=== PATIENT | female | born 1995 | race Caucasian/White ===

== ENCOUNTER 2020-03-13 17:47 | Observation (INO) | payer BC ==
[2020-03-13] MEDS ORDERED: Sodium Chloride 0.9% 10 ML Syringe FLUSH PRN (18:26)
[2020-03-13] MEDS ORDERED: Lactated Ringers 1,000 ML IV SCH ×2 (18:30)
== END 2020-03-13 21:20 | disposition home or self-care (01) ==
LOC: JD.OBCHECK 17:47 → JD.OB 17:47 → JD.OBCHECK 18:27 → JD.OB 18:27
PROVIDERS: ADMIT Obstetrics & Gynecology; ATTEND Obstetrics & Gynecology
DX: O47.03 False labor before 37 completed weeks of gestation, third trimester (principal); Z3A.36 36 weeks gestation of pregnancy
CPT/HCPCS: 59025; 81001; 87086; 96360; G0378; J7120

== ENCOUNTER 2020-03-28 06:41 | Inpatient (IN) | payer BC ==
[~2020-03-28 06:41] MED LIST: Lidocaine 1.5% with EPINEPHrine 1:200,000 5 ML Amp ONE
[2020-03-28] MEDS ORDERED: Ondansetron 4 MG/2 ML SDV IVPUSH PRN (07:46)
[2020-03-28] MEDS ORDERED: Nalbuphine 10 MG/ML Syringe IVPUSH PRN (07:46)
[2020-03-28] MEDS ORDERED: Sodium Chloride 0.9% 10 ML Syringe FLUSH PRN (07:46)
[2020-03-28] MEDS ORDERED: Oxytocin/Lactated Ringers 10 UNIT/1,000 ML BAG IV SCH ×2 (08:00)
[2020-03-28] MEDS: Lactated Ringers 1,000 ML IV SCH ×3 (08:18→14:29)
--- NOTE | 2020-03-28 09:13 | PCM.LDHP ---
<Lolita Boswell - Last Filed: 03/28/20 09:39> L&D History of Present Illness - General Date of Service: 03/28/20 Admit Problem/Dx: Patient Status Order with Admit Dx/Problem 03/28/20 07:47 Patient Status [ADT] Routine Admission Diagnosis/Problem Admission Diagnosis/Problem Source of Information: Patient History Limitations: Reports: No Limitations - History of Present Illness Introduction:: Vannessa Foley is a 24-year-old at 39 weeks and 0 days gestation who presents to the labor and delivery unit for elective induction. She is allergic to latex. OBGYN History: LMP on 06/25/2019. Normal menarche at age 15. Cycles are approximately every 28-31 days. She had one spontaneous in 2016. She had one on 04/28/2018 at 40 weeks gestation in [place], [place]. Length of labor was 20 hours. She had an epidural performed. The baby was a female weighing 7 lbs 8 oz. She reports no complications with that delivery. Course: Vannessa was seen initially on 09/19/2020. She was seen on a regular basis throughout her . She overall had no problems or complaints, other than possible decreased movement in January 2020. A biophysical profile was performed on 02/27/2020 which showed a score of 8/8 with normal amniotic fluid, breathing, tone, activity, appropriate growth, and cephalic presentation.. Her vitals remained stable throughout the . She gained 26 pounds over the course of her , from 144 pounds to 170 pounds. Fundal height growth was appropriate throughout . Inital laboratory studies on 09/19/2019 showed hemoglobin of 12.9 g/dl, hematocrit of 37.8%, and platelet count of 283 10*3/uL. Blood type is O+ and antibody screen was negative. Second trimester labs showed a hemoglobin of 11.2 g/dl, hematocrit of 35.1%, and platelet count of 240 10*3/uL. Most recent labs show a hemoglobin of 10.6 g/dl, hematocrit of 34.5%, and platelet count of 222 10*3/uL. She is rubella immune. RPR nonreactive. Hepatitis B surface antigen and HIV testing were both negative. Chlamydia and gonorrhea testing was negative. Group B strep testing was negative. One-hour GTT was normal. Improves with: Reports: None Worsens with: Reports: None Associated Symptoms: Reports: N - Related Data Allergies/Adverse Reactions: Allergies Allergy/AdvReac Type Severity Reaction Status Date / Time Latex, Natural Rubber Allergy Rash Verified 03/28/20 09:10 Home Medications: Home Meds Vits #93/Iron Fum/FA [ Formula Tablet] 1 tab PO DAILY 03/13/20 [History] Docusate Sodium [Colace] 100 mg PO DAILY 03/28/20 [History] Ferrous Sulfate [Iron] 325 mg PO DAILY 03/28/20 [History] Past Medical History HEENT History: Reports: Impaired Vision Cardiovascular History: Reports: None Respiratory History: Reports: None Gastrointestinal History: Reports: None 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: , 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 Neurological History: Reports: None Hematologic History: Reports: Other (See Below) Other Hematologic History: Low iron only during - Past Surgical History HEENT Surgical History: Reports: None Social & Family History - Family History Family Medical History: Noncontributory - Tobacco Use Smoking Status *Q: Former Smoker Years of Tobacco use: 1 Used Tobacco, but Quit: Yes Month/Year Tobacco Last Used: 03/2015 - Alcohol Use Alcohol Use History: No - Recreational Drug Use Recreational Drug Use: No H&P Review of Systems - Review of Systems: Review Of Systems: See Below General: Reports: No Symptoms HEENT: Reports: No Symptoms Pulmonary: Reports: No Symptoms Cardiovascular: Reports: No Symptoms Gastrointestinal: Reports: No Symptoms Genitourinary: Reports: No Symptoms Musculoskeletal: Reports: No Symptoms Skin: Reports: No Symptoms Psychiatric: Reports: No Symptoms Neurological: Reports: No Symptoms Hematologic/Lymphatic: Reports: No Symptoms Immunologic: Reports: No Symptoms L&D Exam - Exam Exam: See Below - Vital Signs Vital Signs: Last Vital Signs Temp 97.8 F 03/28/20 07:46 Pulse 82 03/28/20 07:46 Resp 16 03/28/20 07:46 BP 110/72 03/28/20 07:46 Pulse Ox 97 03/28/20 07:46 Weight: 172 lb - OB Specific Contraction Intensity: Mild Movement: Active - Exam General: Alert, Oriented, Cooperative HEENT: Conjunctiva Clear, EACs Clear, EOMI, Hearing Intact, Mucosa Moist & [place], Normal Nasal Septum, Posterior Pharynx Clear, Pupils Equal, Pupils Reactive, TMs Clear, PERRLA Neck: Supple, Trachea Midline, +2 Carotid Pulse wo Bruit, Full Range of Motion, Other (Thyroid nonenlarged with no nodules.) Lungs: Clear to Auscultation, Normal Respiratory Effort Cardiovascular: Regular Rate, Regular Rhythm, Normal S1, Normal S2 GI/Abdominal Exam: Normal Bowel Sounds, Soft, Non-Tender, No Organomegaly, No Distention, No Mass Rectal Exam: Deferred Back Exam: Other (No CVA tenderness) Extremities: Normal Inspection, Non-Tender, No Pedal Edema, Normal Capillary Refill Skin: Warm, Dry, Intact Neurological: Cranial Nerves Intact, Reflexes Equal Bilateral, Normal Speech, Normal Tone DTR: 2+: Bicep (L), Bicep (R), Patella (L), Patella (R), Achilles (L), Achilles (R) Psychiatric: Alert, Normal Affect, Normal Mood - Patient Data Lab Results Last 24 hrs: Laboratory Results - last 24 hr 03/28/20 Range/Units 08:10 WBC 7.31 (3.98-10.04) K/mm3 RBC 3.93 L (3.98-5.22) M/mm3 Hgb 10.5 L (11.2-15.7) gm/dl Hct 34.5 (34.1-44.9) % MCV 87.8 (79.4-94.8) fl MCH 26.7 (25.6-32.2) pg MCHC 30.4 L (32.2-35.5) g/dl RDW Std Deviation 50.8 H (36.4-46.3) fL Plt Count 208 (182-369) K/mm3 MPV 10.4 (9.4-12.3) fl Neut % (Auto) 68.7 (34.0-71.1) % Lymph % (Auto) 21.2 (19.3-51.7) % [place] % (Auto) 8.8 (4.7-12.5) % Eos % (Auto) 1.1 (0.7-5.8) Baso % (Auto) 0.1 (0.1-1.2) % Neut # (Auto) 5.02 (1.56-6.13) K/mm3 Lymph # (Auto) 1.55 (1.18-3.74) K/mm3 [place] # (Auto) 0.64 H (0.24-0.36) K/mm3 Eos # (Auto) 0.08 (0.04-0.36) K/mm3 Baso # (Auto) 0.01 (0.01-0.08) K/mm3 Result Diagrams: 03/28/20 08:10 Orders Last 24hrs: Active Orders 24 hr Category Date Time Status Patient Status [ADT] Routine ADT 03/28/20 07:47 Active Activity as Tolerated [RC] PFP Care 03/28/20 07:46 Active Communication Order [RC] ASDIRECTED Care 03/28/20 07:46 Active Heart Tones [RC] ASDIRECTED Care 03/28/20 07:47 Active Notify Provider [RC] PFP Care 03/28/20 07:46 Active Notify Provider [RC] PRN Care 03/28/20 07:46 Active Peripheral IV Care [RC] . DIRECTED Care 03/28/20 07:47 Active Pump Management, Intrathecal [RC] ASDIRECTED Care 03/28/20 07:53 Active Vital Signs [RC] PER UNIT ROUTINE Care 03/28/20 07:46 Active Regular Diet [DIET] Diet 03/28/20 Breakfast Active BLOOD BANK HOLD SPECIMEN [BBK] Stat Lab 03/28/20 08:10 Received RAPID PLASMA REAGIN,RPR [CHEM] Routine Lab 03/28/20 08:10 Received Lactated Ringers [Ringers, Lactated] 1,000 ml Med 03/28/20 08:00 Active IV ASDIRECTED Nalbuphine [Nubain] Med 03/28/20 07:46 Active 10 mg IVPUSH Q2H PRN Ondansetron [Zofran] Med 03/28/20 07:46 Active 4 mg IVPUSH Q4H PRN Oxytocin/Lactated Ringers [Pitocin in LR 10 Units/1,000 Med 03/28/20 08:00 Active ML] 10 unit in 1,000 ml IV .CONTINUOUS Oxytocin/Lactated Ringers [Pitocin in LR 10 Units/1,000 Med 03/28/20 08:00 Active ML] 10 unit in 1,000 ml IV TITRATE Sodium Chloride 0.9% [Saline Flush] Med 03/28/20 07:46 Active 10 ml FLUSH ASDIRECTED PRN Electronic Heart Tones Ext w TOCO [WOMSER] Oth 03/28/20 07:46 Ordered Routine Electronic Heart Tones Internal [WOMSER] Per Unit Ot 03/28/20 07:46 Ordered Routine Peripheral IV Insertion Adult [OM.PC] Routine Oth 03/28/20 07:46 Ordered Resuscitation Status Routine Resus Stat 03/28/20 07:46 Ordered Medication Orders Oxytocin/Lactated Ringer's (Pitocin In Lr 10 Units/1,000 Ml) 10 unit in 1,000 mls @ 12 mls/hr IV TITRATE CHRISTIE; Protocol Last Admin: 03/28/20 08:18 Dose: 2 munits/min, 12 mls/hr Documented by: GASTON Oxytocin/Lactated Ringer's (Pitocin In Lr 10 Units/1,000 Ml) 10 unit in 1,000 mls @ 100 mls/hr IV .CONTINUOUS CHRISTIE Lactated Ringer's (Ringers, Lactated) 1,000 mls @ 100 mls/hr IV ASDIRECTED CHRISTIE Last Admin: 03/28/20 08:18 Dose: 100 mls/hr Documented by: GASTON Nalbuphine HCl (Nubain) 10 mg IVPUSH Q2H PRN PRN Reason: Pain Ondansetron HCl (Zofran) 4 mg IVPUSH Q4H PRN PRN Reason: Nausea/Vomiting Sodium Chloride (Saline Flush) 10 ml FLUSH ASDIRECTED PRN PRN Reason: Keep Vein Open <Daniel Bliss - Last Filed: 03/28/20 10:33> L&D History of Present Illness - General Admit Problem/Dx: Patient Status Order with Admit Dx/Problem 03/28/20 07:47 Patient Status [ADT] Routine Admission Diagnosis/Problem Admission Diagnosis/Problem Source of Information: Patient History Limitations: Reports: No Limitations H&P Review of Systems - Review of Systems: Review Of Systems: See Below L&D Exam - Exam Exam: See Below - Vital Signs Vital Signs: Last Vital Signs Temp 97.8 F 03/28/20 07:46 Pulse 82 03/28/20 07:46 Resp 16 03/28/20 07:46 BP 110/72 03/28/20 07:46 Pulse Ox 97 03/28/20 07:46 - OB Specific Presentation: Vertex - Aly Score Aly Score Cervix Position: Posterior Aly Score Consistency: Soft Aly Score Effacement: 51-70% Aly Score Dilation: 1-2 cm Aly Score 's Station: -3 Aly Score Total: 5 - Patient Data Lab Results Last 24 hrs: Laboratory Results - last 24 hr 03/28/20 Range/Units 08:10 WBC 7.31 (3.98-10.04) K/mm3 RBC 3.93 L (3.98-5.22) M/mm3 Hgb 10.5 L (11.2-15.7) gm/dl Hct 34.5 (34.1-44.9) % MCV 87.8 (79.4-94.8) fl MCH 26.7 (25.6-32.2) pg MCHC 30.4 L (32.2-35.5) g/dl RDW Std Deviation 50.8 H (36.4-46.3) fL Plt Count 208 (182-369) K/mm3 MPV 10.4 (9.4-12.3) fl Neut % (Auto) 68.7 (34.0-71.1) % Lymph % (Auto) 21.2 (19.3-51.7) % [place] % (Auto) 8.8 (4.7-12.5) % Eos % (Auto) 1.1 (0.7-5.8) Baso % (Auto) 0.1 (0.1-1.2) % Neut # (Auto) 5.02 (1.56-6.13) K/mm3 Lymph # (Auto) 1.55 (1.18-3.74) K/mm3 [place] # (Auto) 0.64 H (0.24-0.36) K/mm3 Eos # (Auto) 0.08 (0.04-0.36) K/mm3 Baso # (Auto) 0.01 (0.01-0.08) K/mm3 Result Diagrams: 03/28/20 08:10 - Problem List (1) 39 weeks gestation of SNOMED Code(s): 28915969 ICD Code: Z3A.39 - 39 WEEKS GESTATION OF Status: Acute Current Visit: Yes Problem List Initiated/Reviewed/Updated: No Orders Last 24hrs: Active Orders 24 hr Category Date Time Status Patient Status [ADT] Routine ADT 03/28/20 07:47 Active Activity as Tolerated [RC] PFP Care 03/28/20 07:46 Active Communication Order [RC] ASDIRECTED Care 03/28/20 07:46 Active Notify Provider [RC] PFP Care 03/28/20 07:46 Active Notify Provider [RC] PRN Care 03/28/20 07:46 Active Peripheral IV Care [RC] . DIRECTED Care 03/28/20 07:47 Active Pump Management, Intrathecal [RC] ASDIRECTED Care 03/28/20 07:53 Active Vital Signs [RC] PER UNIT ROUTINE Care 03/28/20 07:46 Active Regular Diet [DIET] Diet 03/28/20 Breakfast Active BLOOD BANK HOLD SPECIMEN [BBK] Stat Lab 03/28/20 08:10 Received CORONAVIRUS COVID-19 RAPID PCR [MOLEC] Routine Lab 03/28/20 10:00 Received RAPID PLASMA REAGIN,RPR [CHEM] Routine Lab 03/28/20 08:10 Received Lactated Ringers [Ringers, Lactated] 1,000 ml Med 03/28/20 08:00 Active IV ASDIRECTED Nalbuphine [Nubain] Med 03/28/20 07:46 Active 10 mg IVPUSH Q2H PRN Ondansetron [Zofran] Med 03/28/20 07:46 Active 4 mg IVPUSH Q4H PRN Oxytocin/Lactated Ringers [Pitocin in LR 10 Units/1,000 Med 03/28/20 08:00 Active ML] 10 unit in 1,000 ml IV .CONTINUOUS Oxytocin/Lactated Ringers [Pitocin in LR 10 Units/1,000 Med 03/28/20 08:00 Active ML] 10 unit in 1,000 ml IV TITRATE Sodium Chloride 0.9% [Saline Flush] Med 03/28/20 07:46 Active 10 ml FLUSH ASDIRECTED PRN Electronic Heart Tones Ext w TOCO [WOMSER] Oth 03/28/20 07:46 Ordered Routine Electronic Heart Tones Internal [WOMSER] Per Unit Oth 03/28/20 07:46 Ordered Routine Peripheral IV Insertion Adult [OM.PC] Routine Oth 03/28/20 07:46 Ordered Resuscitation Status Routine Resus Stat 03/28/20 07:46 Ordered Medication Orders Oxytocin/Lactated Ringer's (Pitocin In Lr 10 Units/1,000 Ml) 10 unit in 1,000 mls @ 12 mls/hr IV TITRATE CHRISTIE; Protocol Last Admin: 03/28/20 08:18 Dose: 2 munits/min, 12 mls/hr Documented by: GASTON Oxytocin/Lactated Ringer's (Pitocin In Lr 10 Units/1,000 Ml) 10 unit in 1,000 mls @ 100 mls/hr IV .CONTINUOUS CHRISTIE Lactated Ringer's (Ringers, Lactated) 1,000 mls @ 100 mls/hr IV ASDIRECTED CHRISTIE Last Admin: 03/28/20 08:18 Dose: 100 mls/hr Documented by: GASTON Nalbuphine HCl (Nubain) 10 mg IVPUSH Q2H PRN PRN Reason: Pain Ondansetron HCl (Zofran) 4 mg IVPUSH Q4H PRN PRN Reason: Nausea/Vomiting Sodium Chloride (Saline Flush) 10 ml FLUSH ASDIRECTED PRN PRN Reason: Keep Vein Open Assessment/Plan Comment:: Plan delivery
--- NOTE | 2020-03-28 11:08 | PCM.SN.2 ---
- Free Text/Narrative Note: Amniotomy at 1103 Clear fluid Cat I FHR before and after. Cervix 4 cm, 70%, soft, mid-position, vertex -1 station. Will be getting epidural soon.
[2020-03-28] MEDS ORDERED: diphenhydrAMINE 50 MG/ML SDV IVPUSH PRN (13:21)
[2020-03-28] MEDS ORDERED: Bupivacaine/fentaNYL/NS 100 ML Bag EPIDUR PRN (13:21)
[2020-03-28] MEDS ORDERED: ePHEDrine 50 MG/ML SDV IVPUSH PRN (13:21)
[2020-03-28] MEDS ORDERED: fentaNYL 100 MCG/2 ML SDV EPIDUR PRN (13:21)
--- NOTE | 2020-03-28 13:21 | PCM.PREANE ---
Preanesthetic Assessment - Anesthesia/Transfusion/Family Hx Anesthesia History: No Prior Anesthesia Transfusion History: No Prior Transfusion(s) Type of Transfusion Reactions: Reports: Unknown - Review of Systems General: No Symptoms Pulmonary: No Symptoms Cardiovascular: No Symptoms Gastrointestinal: No Symptoms Neurological: No Symptoms Other: Reports: None - Physical Assessment Vital Signs: Last Vital Signs Temp 97.8 F 03/28/20 07:46 Pulse 82 03/28/20 07:46 Resp 16 03/28/20 07:46 BP 110/72 03/28/20 07:46 Pulse Ox 97 03/28/20 07:46 Height: 1.55 m Weight: 78.018 kg ASA Class: 2 Mental Status: Alert & Oriented x3 Airway Class: Mallampati = 2 Dentition: Reports: Normal Dentition Thyro-Mental Finger Breadths: 3 Mouth Opening Finger Breadths: 3 ROM/Head Extension: Full Lungs: Clear to Auscultation, Normal Respiratory Effort Cardiovascular: Regular Rate, Regular Rhythm - Lab Values: Laboratory Last Values WBC 7.31 K/mm3 (3.98-10.04) 03/28/20 08:10 RBC 3.93 M/mm3 (3.98-5.22) L 03/28/20 08:10 Hgb 10.5 gm/dl (11.2-15.7) L 03/28/20 08:10 Hct 34.5 % (34.1-44.9) 03/28/20 08:10 MCV 87.8 fl (79.4-94.8) 03/28/20 08:10 MCH 26.7 pg (25.6-32.2) 03/28/20 08:10 MCHC 30.4 g/dl (32.2-35.5) L 03/28/20 08:10 RDW Std Deviation 50.8 fL (36.4-46.3) H 03/28/20 08:10 Plt Count 208 K/mm3 (182-369) 03/28/20 08:10 MPV 10.4 fl (9.4-12.3) 03/28/20 08:10 Neut % (Auto) 68.7 % (34.0-71.1) 03/28/20 08:10 Lymph % (Auto) 21.2 % (19.3-51.7) 03/28/20 08:10 [place] % (Auto) 8.8 % (4.7-12.5) 03/28/20 08:10 Eos % (Auto) 1.1 (0.7-5.8) 03/28/20 08:10 Baso % (Auto) 0.1 % (0.1-1.2) 03/28/20 08:10 Neut # (Auto) 5.02 K/mm3 (1.56-6.13) 03/28/20 08:10 Lymph # (Auto) 1.55 K/mm3 (1.18-3.74) 03/28/20 08:10 [place] # (Auto) 0.64 K/mm3 (0.24-0.36) H 03/28/20 08:10 Eos # (Auto) 0.08 K/mm3 (0.04-0.36) 03/28/20 08:10 Baso # (Auto) 0.01 K/mm3 (0.01-0.08) 03/28/20 08:10 SARS-CoV-2 RNA (RT-PCR) Negative (NEGATIVE) 03/28/20 10:00 - Allergies Allergies/Adverse Reactions: Allergies Allergy/AdvReac Type Severity Reaction Status Date / Time Latex, Natural Rubber Allergy Rash Verified 03/28/20 09:10 - Acknowledgements Anesthesia Type Planned: Epidural Pt an Appropriate Candidate for the Planned Anesthesia: Yes Alternatives and Risks of Anesthesia Discussed w Pt/Guardian: Yes Pt/Guardian Understands and Agrees with Anesthesia Plan: Yes PreAnesthesia Questionnaire HEENT History: Reports: Impaired Vision Cardiovascular History: Reports: None Respiratory History: Reports: None Gastrointestinal History: Reports: None 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: , 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 Neurological History: Reports: None Hematologic History: Reports: Other (See Below) Other Hematologic History: Low iron only during - Past Surgical History HEENT Surgical History: Reports: None - SUBSTANCE USE Smoking Status *Q: Former Smoker Tobacco Use Within Last Twelve Months: No Recreational Drug Use History: No - HOME MEDS Home Medications: Home Meds Vits #93/Iron Fum/FA [ Formula Tablet] 1 tab PO DAILY 03/13/20 [History] Docusate Sodium [Colace] 100 mg PO DAILY 03/28/20 [History] Ferrous Sulfate [Iron] 325 mg PO DAILY 03/28/20 [History] - CURRENT (IN HOUSE) MEDS Current Meds: Current Medications Oxytocin/Lactated Ringer's (Pitocin In Lr 10 Units/1,000 Ml) 10 unit in 1,000 mls @ 12 mls/hr IV TITRATE CHRISTIE; Protocol Last Titration: 03/28/20 10:40 Dose: 10 munits/min, 60 mls/hr Documented by: Oxytocin/Lactated Ringer's (Pitocin In Lr 10 Units/1,000 Ml) 10 unit in 1,000 mls @ 100 mls/hr IV .CONTINUOUS CHRISTIE Lactated Ringer's (Ringers, Lactated) 1,000 mls @ 100 mls/hr IV ASDIRECTED CHRISTIE Last Admin: 03/28/20 12:21 Dose: 100 mls/hr Documented by: Nalbuphine HCl (Nubain) 10 mg IVPUSH Q2H PRN PRN Reason: Pain Ondansetron HCl (Zofran) 4 mg IVPUSH Q4H PRN PRN Reason: Nausea/Vomiting Sodium Chloride (Saline Flush) 10 ml FLUSH ASDIRECTED PRN PRN Reason: Keep Vein Open
--- NOTE | 2020-03-28 16:26 | PCM.DEL ---
L & D Note - General Info Date of Service: 03/28/20 Mother's Due Date: 04/03/20 - Delivery Note Labor: Spontaneous, Augmented by ARM, Augmented by Oxytocin Cervical Ripening Method: Oxytocin Delivery Outcome: Livebirth (Female liveborn at 160Thursday03/28/2020 JOSE nuchal cord x1 under epidural anesthesia over no episiotomy) Delivery Method: Spontaneous Vaginal Delivery-Single Infant Delivery Mode: Spontaneous Presentation: Vertex Nuchal Cord: Present Prep: Povidone-Iodine (Betadine Anesthesia Type: None, Epidural Amniotic Fluid Description: Clear Episiotomy Type: None Laceration: None Placenta: Intact, Spontaneous Cord: 3 Vessels Estimated Blood Loss: 250 Resuscitation Needed: No : Suctioned, Bulb Syringe, Stimulated, Warmed, [place] Used, Warmer Used Provider: Daniel Bliss Score 1 min: 9 Score 5 min: 9 - General Info Date of Service: 03/28/20 Functional Status: Reports: Pain Controlled - Review of Systems General: Reports: No Symptoms HEENT: Reports: No Symptoms Pulmonary: Reports: No Symptoms Cardiovascular: Reports: No Symptoms Gastrointestinal: Reports: No Symptoms Genitourinary: Reports: No Symptoms Musculoskeletal: Reports: No Symptoms Skin: Reports: No Symptoms Neurological: Reports: No Symptoms Psychiatric: Reports: No Symptoms - Patient Data Vitals - Most Recent: Last Vital Signs Temp 97.8 F 03/28/20 07:46 Pulse 82 03/28/20 07:46 Resp 16 03/28/20 07:46 BP 110/72 03/28/20 07:46 Pulse Ox 97 03/28/20 07:46 Weight - Most Recent: 172 lb Lab Results Last 24 Hours: Laboratory Results - last 24 hr 03/28/20 03/28/20 Range/Units 08:10 10:00 WBC 7.31 (3.98-10.04) K/mm3 RBC 3.93 L (3.98-5.22) M/mm3 Hgb 10.5 L (11.2-15.7) gm/dl Hct 34.5 (34.1-44.9) % MCV 87.8 (79.4-94.8) fl MCH 26.7 (25.6-32.2) pg MCHC 30.4 L (32.2-35.5) g/dl RDW Std Deviation 50.8 H (36.4-46.3) fL Plt Count 208 (182-369) K/mm3 MPV 10.4 (9.4-12.3) fl Neut % (Auto) 68.7 (34.0-71.1) % Lymph % (Auto) 21.2 (19.3-51.7) % [place] % (Auto) 8.8 (4.7-12.5) % Eos % (Auto) 1.1 (0.7-5.8) Baso % (Auto) 0.1 (0.1-1.2) % Neut # (Auto) 5.02 (1.56-6.13) K/mm3 Lymph # (Auto) 1.55 (1.18-3.74) K/mm3 [place] # (Auto) 0.64 H (0.24-0.36) K/mm3 Eos # (Auto) 0.08 (0.04-0.36) K/mm3 Baso # (Auto) 0.01 (0.01-0.08) K/mm3 SARS-CoV-2 RNA (RT-PCR) Negative (NEGATIVE) Med Orders - Current: Current Medications Diphenhydramine HCl (Benadryl) 25 mg IVPUSH Q6H PRN PRN Reason: pruritis Ephedrine Sulfate (Ephedrine Sulfate) 5 mg IVPUSH ASDIRECTED PRN PRN Reason: Hypotension Fentanyl (Sublimaze) 100 mcg EPIDUR Q3H PRN PRN Reason: Pain Last Admin: 03/28/20 13:46 Dose: 100 mcg Documented by: Fentanyl/Bupivacaine HCl (Fentanyl/Bupivacaine/Ns 2 Mcg-0.125% 100 Ml) 100 ml EPIDUR ASDIRECTED PRN PRN Reason: Pain Last Admin: 03/28/20 13:46 Dose: 100 ml Documented by: Oxytocin/Lactated Ringer's (Pitocin In Lr 10 Units/1,000 Ml) 10 unit in 1,000 mls @ 12 mls/hr IV TITRATE CHRISTIE; Protocol Last Titration: 03/28/20 14:32 Dose: 12 munits/min, 72 mls/hr Documented by: Oxytocin/Lactated Ringer's (Pitocin In Lr 10 Units/1,000 Ml) 10 unit in 1,000 mls @ 100 mls/hr IV .CONTINUOUS CHRISTIE Lactated Ringer's (Ringers, Lactated) 1,000 mls @ 100 mls/hr IV ASDIRECTED [facility] Last Admin: 03/28/20 14:29 Dose: 100 mls/hr Documented by: Nalbuphine HCl (Nubain) 10 mg IVPUSH Q2H PRN PRN Reason: Pain Ondansetron HCl (Zofran) 4 mg IVPUSH Q4H PRN PRN Reason: Nausea/Vomiting Sodium Chloride (Saline Flush) 10 ml FLUSH ASDIRECTED PRN PRN Reason: Keep Vein Open - Exam General: Alert, Oriented HEENT: Pupils Equal, Mucous Membr. Moist/[place] Neck: Supple Lungs: Clear to Auscultation, Normal Respiratory Effort Cardiovascular: Regular Rate, Regular Rhythm GI/Abdominal Exam: Normal Bowel Sounds, Soft, Non-Tender (Female) Exam: Normal External Exam Extremities: Normal Inspection, Non-Tender, No Pedal Edema, Normal Capillary Refill Skin: Warm, Dry, Intact Psy/Mental Status: Alert, Normal Affect, Normal Mood - Problem List & Annotations (1) 39 weeks gestation of SNOMED Code(s): 49257323 Code(s): Z3A.39 - 39 WEEKS GESTATION OF Status: Acute Current Visit: Yes (2) Encounter for full-term uncomplicated delivery SNOMED Code(s): 606281804 Code(s): O80 - ENCOUNTER FOR FULL-TERM UNCOMPLICATED DELIVERY Status: Acute Current Visit: Yes - Problem List Review Problem List Initiated/Reviewed/Updated: No - My Orders Last 24 Hours: My Active Orders 03/28/20 Breakfast Regular Diet [DIET] 03/28/20 07:46 Activity as Tolerated [RC] PFP Communication Order [RC] ASDIRECTED Notify Provider [RC] PFP Notify Provider [RC] PRN Vital Signs [RC] PER UNIT ROUTINE Nalbuphine [Nubain] 10 mg IVPUSH Q2H PRN Ondansetron [Zofran] 4 mg IVPUSH Q4H PRN Sodium Chloride 0.9% [Saline Flush] 10 ml FLUSH ASDIRECTED PRN Electronic Heart Tones Ext w TOCO [WOMSER] Routine Electronic Heart Tones Internal [WOMSER] Per Unit Routine Peripheral IV Insertion Adult [OM.PC] Routine Resuscitation Status Routine 03/28/20 07:47 Patient Status [ADT] Routine Peripheral IV Care [RC] . DIRECTED 03/28/20 07:53 Pump Management, Intrathecal [RC] ASDIRECTED 03/28/20 08:00 Lactated Ringers [Ringers, Lactated] 1,000 ml IV ASDIRECTED Oxytocin/Lactated Ringers [Pitocin in LR 10 Units/1,000 ML] 10 unit in 1,000 ml IV .CONTINUOUS Oxytocin/Lactated Ringers [Pitocin in LR 10 Units/1,000 ML] 10 unit in 1,000 ml IV TITRATE 03/28/20 08:10 BLOOD BANK HOLD SPECIMEN [BBK] Stat RAPID PLASMA REAGIN,RPR [CHEM] Routine - Plan Plan:: Plan delivery
[2020-03-28] MEDS ORDERED: Docusate Sodium 100 MG Cap PO PRN (17:30)
[2020-03-28] MEDS ORDERED: Witch Hazel Medicated Pads 40/Jar TOP PRN (17:30)
[2020-03-28] MEDS ORDERED: Benzocaine/Menthol 20%-0.5% Spray 56 GM Canister TOP PRN (19:27)
[2020-03-28] MEDS: Ibuprofen 600 MG Tab PO PRN (20:06)
[2020-03-28] MEDS: Acetaminophen 325 MG Tab PO PRN (22:31)
[2020-03-29] MEDS: Ibuprofen 600 MG Tab PO PRN ×2 (03:23→16:51)
[2020-03-29] MEDS: Acetaminophen 325 MG Tab PO PRN (06:08)
--- NOTE | 2020-03-29 08:04 | PCM48HPAN ---
Post Anesthesia Note - EVALUATION WITHIN 48HRS OF ANESTHETIC Vital Signs in Normal Range: Yes Patient Participated in Evaluation: Yes Respiratory Function Stable: Yes Airway Patent: Yes Cardiovascular Function Stable: Yes Hydration Status Stable: Yes Pain Control Satisfactory: Yes Nausea and Vomiting Control Satisfactory: Yes Mental Status Recovered: Yes Vital Signs: Last Vital Signs Temp 97.5 F 03/29/20 03:11 Pulse 77 03/29/20 03:11 Resp 14 03/29/20 03:11 BP 116/69 03/29/20 03:11 Pulse Ox 100 03/29/20 03:11
--- NOTE | 2020-03-29 09:22 | PCM.DCSUM1 ---
Discharge Summary - Hospital Course Free Text/Narrative:: [place] LIVE L/D Delivery Note Patient Name: FAITH AYALA Date of : 89 Patient Status: Inpatient Attending Provider: Daniel Bliss Date: 03/28/20 16:21 Initialization Date: 03/28/20 16:21 L & D Note - General Info Date of Service: 03/28/20 Mother's Due Date: 04/03/20 - Delivery Note Labor: Spontaneous, Augmented by ARM, Augmented by Oxytocin Cervical Ripening Method: Oxytocin Delivery Outcome: Livebirth (Female liveborn at 1605 Thursday03/28/2020 JOSE nuchal cord x1 under epidural anesthesia over no episiotomy) Infant Delivery Method: Spontaneous Vaginal Delivery-Single Infant Delivery Mode: Spontaneous Presentation: Vertex Nuchal Cord: Present Prep: Povidone-Iodine (Betadine Anesthesia Type: None, Epidural Amniotic Fluid Description: Clear Episiotomy Type: None Laceration: None Placenta: Intact, Spontaneous Cord: 3 Vessels Estimated Blood Loss: 250 Resuscitation Needed: No : Suctioned, Bulb Syringe, Stimulated, Warmed, Monroe Used, Warmer Used Provider: Daniel Bliss Score 1 min: 9 Score 5 min: 9 - General Info Date of Service: 03/28/20 Functional Status: Reports: Pain Controlled - Review of Systems General: Reports: No Symptoms HEENT: Reports: No Symptoms Pulmonary: Reports: No Symptoms Cardiovascular: Reports: No Symptoms Gastrointestinal: Reports: No Symptoms Genitourinary: Reports: No Symptoms Musculoskeletal: Reports: No Symptoms Skin: Reports: No Symptoms Neurological: Reports: No Symptoms Psychiatric: Reports: No Symptoms - Patient Data Vitals - Most Recent: Last Vital Signs Temp 97.8 F 03/28/20 07:46 Pulse 82 03/28/20 07:46 Resp 16 03/28/20 07:46 BP 110/72 03/28/20 07:46 Pulse Ox 97 03/28/20 07:46 Weight - Most Recent: 172 lb Lab Results Last 24 Hours: Laboratory Results - last 24 hr 03/28/20 03/28/20 Range/Units 08:10 10:00 WBC 7.31 (3.98-10.04) K/mm3 RBC 3.93 L (3.98-5.22) M/mm3 Hgb 10.5 L (11.2-15.7) gm/dl Hct 34.5 (34.1-44.9) % MCV 87.8 (79.4-94.8) fl MCH 26.7 (25.6-32.2) pg MCHC 30.4 L (32.2-35.5) g/dl RDW Std Deviation 50.8 H (36.4-46.3) fL Plt Count 208 (182-369) K/mm3 MPV 10.4 (9.4-12.3) fl Neut % (Auto) 68.7 (34.0-71.1) % Lymph % (Auto) 21.2 (19.3-51.7) % Dawson % (Auto) 8.8 (4.7-12.5) % Eos % (Auto) 1.1 (0.7-5.8) Baso % (Auto) 0.1 (0.1-1.2) % Neut # (Auto) 5.02 (1.56-6.13) K/mm3 Lymph # (Auto) 1.55 (1.18-3.74) K/mm3 Dawson # (Auto) 0.64 H (0.24-0.36) K/mm3 Eos # (Auto) 0.08 (0.04-0.36) K/mm3 Baso # (Auto) 0.01 (0.01-0.08) K/mm3 SARS-CoV-2 RNA (RT-PCR) Negative (NEGATIVE) Med Orders - Current: Current Medications Diphenhydramine HCl (Benadryl) 25 mg IVPUSH Q6H PRN PRN Reason: pruritis Ephedrine Sulfate (Ephedrine Sulfate) 5 mg IVPUSH ASDIRECTED PRN PRN Reason: Hypotension Fentanyl (Sublimaze) 100 mcg EPIDUR Q3H PRN PRN Reason: Pain Last Admin: 03/28/20 13:46 Dose: 100 mcg Documented by: Fentanyl/Bupivacaine HCl (Fentanyl/Bupivacaine/Ns 2 Mcg-0.125% 100 Ml) 100 ml EPIDUR ASDIRECTED PRN PRN Reason: Pain Last Admin: 03/28/20 13:46 Dose: 100 ml Documented by: Oxytocin/Lactated Ringer's (Pitocin In Lr 10 Units/1,000 Ml) 10 unit in 1,000 mls @ 12 mls/hr IV TITRATE CHRISTIE; Protocol Last Titration: 03/28/20 14:32 Dose: 12 munits/min, 72 mls/hr Documented by: Oxytocin/Lactated Ringer's (Pitocin In Lr 10 Units/1,000 Ml) 10 unit in 1,000 mls @ 100 mls/hr IV .CONTINUOUS CHRISTIE Lactated Ringer's (Ringers, Lactated) 1,000 mls @ 100 mls/hr IV ASDIRECTED CHRISTIE Last Admin: 03/28/20 14:29 Dose: 100 mls/hr Documented by: Nalbuphine HCl (Nubain) 10 mg IVPUSH Q2H PRN PRN Reason: Pain Ondansetron HCl (Zofran) 4 mg IVPUSH Q4H PRN PRN Reason: Nausea/Vomiting Sodium Chloride (Saline Flush) 10 ml FLUSH ASDIRECTED PRN PRN Reason: Keep Vein Open - Exam General: Alert, Oriented HEENT: Pupils Equal, Mucous Membr. Moist/Carmine Neck: Supple Lungs: Clear to Auscultation, Normal Respiratory Effort Cardiovascular: Regular Rate, Regular Rhythm GI/Abdominal Exam: Normal Bowel Sounds, Soft, Non-Tender (Female) Exam: Normal External Exam Extremities: Normal Inspection, Non-Tender, No Pedal Edema, Normal Capillary Refill Skin: Warm, Dry, Intact Psy/Mental Status: Alert, Normal Affect, Normal Mood - Problem List & Annotations (1) 39 weeks gestation of SNOMED Code(s): 78085618 Code(s): Z3A.39 - 39 WEEKS GESTATION OF Status: Acute Current Visit: Yes (2) Encounter for full-term uncomplicated delivery SNOMED Code(s): 710512008 Code(s): O80 - ENCOUNTER FOR FULL-TERM UNCOMPLICATED DELIVERY Status: Acute Current Visit: Yes - Problem List Review Problem List Initiated/Reviewed/Updated: No - My Orders Last 24 Hours: My Active Orders 03/28/20 Breakfast Regular Diet [DIET] 03/28/20 07:46 Activity as Tolerated [RC] PFP Communication Order [RC] ASDIRECTED Notify Provider [RC] PFP Notify Provider [RC] PRN Vital Signs [RC] PER UNIT ROUTINE Nalbuphine [Nubain] 10 mg IVPUSH Q2H PRN Ondansetron [Zofran] 4 mg IVPUSH Q4H PRN Sodium Chloride 0.9% [Saline Flush] 10 ml FLUSH ASDIRECTED PRN Electronic Heart Tones Ext w TOCO [WOMSER] Routine Electronic Heart Tones Internal [WOMSER] Per Unit Routine Peripheral IV Insertion Adult [OM.PC] Routine Resuscitation Status Routine 03/28/20 07:47 Patient Status [ADT] Routine Peripheral IV Care [RC] . DIRECTED 03/28/20 07:53 Pump Management, Intrathecal [RC] ASDIRECTED 03/28/20 08:00 Lactated Ringers [Ringers, Lactated] 1,000 ml IV ASDIRECTED Oxytocin/Lactated Ringers [Pitocin in LR 10 Units/1,000 ML] 10 unit in 1,000 ml IV .CONTINUOUS Oxytocin/Lactated Ringers [Pitocin in LR 10 Units/1,000 ML] 10 unit in 1,000 ml IV TITRATE 03/28/20 08:10 BLOOD BANK HOLD SPECIMEN [BBK] Stat RAPID PLASMA REAGIN,RPR [CHEM] Routine - Plan Plan:: Plan delivery HPI Initial Comments: [place] [facility]IVE L/D Delivery Note Patient Name: FAITH AYALA Date of : [birth year] Patient Status: Inpatient Attending Provider: Daniel Bliss Date: 03/28/20 16:21 Initialization Date: 03/28/20 16:21 L & D Note - General Info Date of Service: 03/28/20 Mother's Due Date: 04/03/20 - Delivery Note Labor: Spontaneous, Augmented by ARM, Augmented by Oxytocin Cervical Ripening Method: Oxytocin Delivery Outcome: Livebirth (Female liveborn at 1605 Thursday03/28/2020 JOSE nuchal cord x1 under epidural anesthesia over no episiotomy) Infant Delivery Method: Spontaneous Vaginal Delivery-Single Delivery Mode: Spontaneous Presentation: Vertex Nuchal Cord: Present Prep: Povidone-Iodine (Betadine Anesthesia Type: None, Epidural Amniotic Fluid Description: Clear Episiotomy Type: None Laceration: None Placenta: Intact, Spontaneous Cord: 3 Vessels Estimated Blood Loss: 250 Resuscitation Needed: No Yulee: Suctioned, Bulb Syringe, Stimulated, Warmed, Monroe Used, Warmer Used Provider: Daniel Bliss Score 1 min: 9 Score 5 min: 9 - General Info Date of Service: 03/28/20 Functional Status: Reports: Pain Controlled - Review of Systems General: Reports: No Symptoms HEENT: Reports: No Symptoms Pulmonary: Reports: No Symptoms Cardiovascular: Reports: No Symptoms Gastrointestinal: Reports: No Symptoms Genitourinary: Reports: No Symptoms Musculoskeletal: Reports: No Symptoms Skin: Reports: No Symptoms Neurological: Reports: No Symptoms Psychiatric: Reports: No Symptoms - Patient Data Vitals - Most Recent: Last Vital Signs Temp 97.8 F 03/28/20 07:46 Pulse 82 03/28/20 07:46 Resp 16 03/28/20 07:46 BP 110/72 03/28/20 07:46 Pulse Ox 97 03/28/20 07:46 Weight - Most Recent: 172 lb Lab Results Last 24 Hours: Laboratory Results - last 24 hr 03/28/20 03/28/20 Range/Units 08:10 10:00 WBC 7.31 (3.98-10.04) K/mm3 RBC 3.93 L (3.98-5.22) M/mm3 Hgb 10.5 L (11.2-15.7) gm/dl Hct 34.5 (34.1-44.9) % MCV 87.8 (79.4-94.8) fl MCH 26.7 (25.6-32.2) pg MCHC 30.4 L (32.2-35.5) g/dl RDW Std Deviation 50.8 H (36.4-46.3) fL Plt Count 208 (182-369) K/mm3 MPV 10.4 (9.4-12.3) fl Neut % (Auto) 68.7 (34.0-71.1) % Lymph % (Auto) 21.2 (19.3-51.7) % Dawson % (Auto) 8.8 (4.7-12.5) % Eos % (Auto) 1.1 (0.7-5.8) Baso % (Auto) 0.1 (0.1-1.2) % Neut # (Auto) 5.02 (1.56-6.13) K/mm3 Lymph # (Auto) 1.55 (1.18-3.74) K/mm3 Dawson # (Auto) 0.64 H (0.24-0.36) K/mm3 Eos # (Auto) 0.08 (0.04-0.36) K/mm3 Baso # (Auto) 0.01 (0.01-0.08) K/mm3 SARS-CoV-2 RNA (RT-PCR) Negative (NEGATIVE) Med Orders - Current: Current Medications Diphenhydramine HCl (Benadryl) 25 mg IVPUSH Q6H PRN PRN Reason: pruritis Ephedrine Sulfate (Ephedrine Sulfate) 5 mg IVPUSH ASDIRECTED PRN PRN Reason: Hypotension Fentanyl (Sublimaze) 100 mcg EPIDUR Q3H PRN PRN Reason: Pain Last Admin: 03/28/20 13:46 Dose: 100 mcg Documented by: Fentanyl/Bupivacaine HCl (Fentanyl/Bupivacaine/Ns 2 Mcg-0.125% 100 Ml) 100 ml EPIDUR ASDIRECTED PRN PRN Reason: Pain Last Admin: 03/28/20 13:46 Dose: 100 ml Documented by: Oxytocin/Lactated Ringer's (Pitocin In Lr 10 Units/1,000 Ml) 10 unit in 1,000 mls @ 12 mls/hr IV TITRATE CHRISTIE; Protocol Last Titration: 03/28/20 14:32 Dose: 12 munits/min, 72 mls/hr Documented by: Oxytocin/Lactated Ringer's (Pitocin In Lr 10 Units/1,000 Ml) 10 unit in 1,000 mls @ 100 mls/hr IV .CONTINUOUS CHRISTIE Lactated Ringer's (Ringers, Lactated) 1,000 mls @ 100 mls/hr IV ASDIRECTED CHRISTIE Last Admin: 03/28/20 14:29 Dose: 100 mls/hr Documented by: Nalbuphine HCl (Nubain) 10 mg IVPUSH Q2H PRN PRN Reason: Pain Ondansetron HCl (Zofran) 4 mg IVPUSH Q4H PRN PRN Reason: Nausea/Vomiting Sodium Chloride (Saline Flush) 10 ml FLUSH ASDIRECTED PRN PRN Reason: Keep Vein Open - Exam General: Alert, Oriented HEENT: Pupils Equal, Mucous Membr. Moist/Carmine Neck: Supple Lungs: Clear to Auscultation, Normal Respiratory Effort Cardiovascular: Regular Rate, Regular Rhythm GI/Abdominal Exam: Normal Bowel Sounds, Soft, Non-Tender (Female) Exam: Normal External Exam Extremities: Normal Inspection, Non-Tender, No Pedal Edema, Normal Capillary Refill Skin: Warm, Dry, Intact Psy/Mental Status: Alert, Normal Affect, Normal Mood - Problem List & Annotations (1) 39 weeks gestation of SNOMED Code(s): 31860882 Code(s): Z3A.39 - 39 WEEKS GESTATION OF Status: Acute Current Visit: Yes (2) Encounter for full-term uncomplicated delivery SNOMED Code(s): 241185047 Code(s): O80 - ENCOUNTER FOR FULL-TERM UNCOMPLICATED DELIVERY Status: Acute Current Visit: Yes - Problem List Review Problem List Initiated/Reviewed/Updated: No - My Orders Last 24 Hours: My Active Orders 03/28/20 Breakfast Regular Diet [DIET] 03/28/20 07:46 Activity as Tolerated [RC] PFP Communication Order [RC] ASDIRECTED Notify Provider [RC] PFP Notify Provider [RC] PRN Vital Signs [RC] PER UNIT ROUTINE Nalbuphine [Nubain] 10 mg IVPUSH Q2H PRN Ondansetron [Zofran] 4 mg IVPUSH Q4H PRN Sodium Chloride 0.9% [Saline Flush] 10 ml FLUSH ASDIRECTED PRN Electronic Heart Tones Ext w TOCO [WOMSER] Routine Electronic Heart Tones Internal [WOMSER] Per Unit Routine Peripheral IV Insertion Adult [OM.PC] Routine Resuscitation Status Routine 03/28/20 07:47 Patient Status [ADT] Routine Peripheral IV Care [RC] . DIRECTED 03/28/20 07:53 Pump Management, Intrathecal [RC] ASDIRECTED 03/28/20 08:00 Lactated Ringers [Ringers, Lactated] 1,000 ml IV ASDIRECTED Oxytocin/Lactated Ringers [Pitocin in LR 10 Units/1,000 ML] 10 unit in 1,000 ml IV .CONTINUOUS Oxytocin/Lactated Ringers [Pitocin in LR 10 Units/1,000 ML] 10 unit in 1,000 ml IV TITRATE 03/28/20 08:10 BLOOD BANK HOLD SPECIMEN [BBK] Stat RAPID PLASMA REAGIN,RPR [CHEM] Routine - Plan Plan:: Plan delivery Brief History: [facility] LIVE . L/D Delivery Note. Patient Name: FAITH AYALA Record Number: [id number]. Date of : [birth year]Patient Status: Inpatient. Attending Provider: Daniel Blissount Number: [id number]. Date: 03/28/20 16:21Initialization Date: 03/28/20 16:21. L & D Note. - General Info. Date of Service: 03/28/20. Mother's Due Date: 04/03/20. - Delivery Note. Labor: Spontaneous, Augmented by ARM, Augmented by Oxytocin. Cervical Ripening Method: Oxytocin. Delivery Outcome: Livebirth (Female liveborn at 1605 Thursday03/28/2020 JOSE nuchal cord x1 under epidural anesthesia over no episiotomy). Infant Delivery Method: Spontaneous Vaginal Delivery-Single. Infant Delivery Mode: Spontaneous. Presentation: Vertex. Nuchal Cord: Present. Prep: Povidone-Iodine (Betadine. Anesthesia Type: None, Epidural. Amniotic Fluid Description: Clear. Episiotomy Type: None. Laceration: None. Placenta: Intact, Spontaneous. Cord: 3 Vessels. Estimated Blood Loss: 250. Resuscitation Needed: No. Yulee: Suctioned, Bulb Syringe, Stimulated, Warmed, Monroe Used, Warmer Used. Provider: Daniel Bliss. Score 1 min: 9. Score 5 min: 9. - General Info. Date of Service: 03/28/20. Functional Status: Reports: Pain Controlled. - Review of Systems. General: Reports: No Symptoms. HEENT: Reports: No Symptoms. Pulmonary: Reports: No Symptoms. Cardiovascular: Reports: No Symptoms. Gastrointestinal: Reports: No Symptoms. Genitourinary: Reports: No Symptoms. Musculoskeletal: Reports: No Symptoms. Skin: Reports: No Symptoms. Neurological: Reports: No Symptoms. Psychiatric: Reports: No Symptoms. - Patient Data. Vitals - Most Recent: Last Vital Signs. Temp 97.8 F 03/28/20 07:46. Pulse 82 03/28/20 07:46. Resp 16 03/28/20 07:46. BP 110/72 03/28/20 07:46. Pulse Ox 97 03/28/20 07:46. Weight - Most Recent: 172 lb. Lab Results Last 24 Hours: Laboratory Results - last 24 hr. 03/28/2007Range/Units. 08:1010:00. WBC 7.31 (3.98-10.04) K/mm3. RBC 3.93 L (3.98-5.22) M/mm3. Hgb 10.5 L (11.2-15.7) gm/dl. Hct 34.5 (34.1-44.9) %. MCV 87.8 (79.4-94.8) fl. MCH 26.7 (25.6-32.2) pg. MCHC 30.4 L (32.2- 35.5) g/dl. RDW Std Deviation 50.8 H (36.4-46.3) fL. Plt Count 208 (182-369) K/mm3. MPV 10.4 (9.4-12.3) fl. Neut % (Auto) 68.7 (34.0-71.1) %. Lymph % (Auto) 21.2 (19.3-51.7) %. Dawson % (Auto) 8.8 (4.7-12.5) %. Eos % (Auto) 1.1 (0.7-5.8). Baso % (Auto) 0.1 (0.1-1.2) %. Neut # (Auto) 5.02 (1.56-6.13) K/mm3. Lymph # (Auto) 1.55 (1.18-3.74) K/mm3. Dawson # (Auto) 0.64 H (0.24-0.3 6) K/mm3. Eos # (Auto) 0.08 (0.04-0.36) K/mm3. Baso # (Auto) 0.01 (0.01- 0.08) K/mm3. SARS-CoV-2 RNA (RT-PCR) Negative (NEGATIVE). Med Orders - Current: Current Medications. Diphenhydramine HCl (Benadryl) 25 mg IVPUSH Q6H PRN. PRN Reason: pruritis. Ephedrine Sulfate (Ephedrine Sulfate) 5 mg IVPUSH ASDIRECTED PRN. PRN Reason: Hypotension. Fentanyl (Sublimaze) 100 mcg EPIDUR Q3H PRN. PRN Reason: Pain. Last Admin: 03/28/20 13:46 Dose: 100 mcg. Documented by: Fentanyl/Bupivacaine HCl (Fentanyl/Bupivacaine/Ns 2 Mcg-0.125% 100 Ml) 100 ml EPIDUR ASDIRECTED PRN. PRN Reason: Pain. Last Admin: 03/28/20 13:46 Dose: 100 ml. Documented by: Oxytocin/Lactated Ringer's (Pitocin In Lr 10 Units/1,000 Ml) 10 unit in 1,000 mls @ 12 mls/hr IV TITRATE CHRISTIE; Protocol. Last Titration: 03/28/20 14:32 Dose: 12 munits/min, 72 mls/hr. Documented by: Oxytocin/Lactated Ringer's (Pitocin In Lr 10 Units/1,000 Ml) 10 unit in 1,000 mls @ 100 mls/hr IV .CONTINUOUS CHRISTIE. Lactated Ringer's (Ringers, Lactated) 1,000 mls @ 100 mls/hr IV ASDIRECTED CHRISTIE. Last Admin: 03/28/20 14:29 Dose: 100 mls/hr. Documented by: Nalbuphine HCl (Nubain) 10 mg IVPUSH Q2H PRN. PRN Reason: Pain. Ondansetron HCl (Zofran) 4 mg IVPUSH Q4H PRN. PRN Reason: Nausea/Vomiting. Sodium Chloride (Saline Flush) 10 ml FLUSH ASDIRECTED PRN. PRN Reason: Keep Vein Open. - Exam. General: Alert, Oriented. HEENT: Pupils Equal, Mucous Membr. Moist/Carmine. Neck: Supple. Lungs: Clear to Auscultation, Normal Respiratory Effort. Cardiovascular: Regular Rate, Regular Rhythm. GI/Abdominal Exam: Normal Bowel Sounds, Soft, Non-Tender. (Female) Exam: Normal External Exam. Extremities: Normal Inspection, Non-Tender, No Pedal Edema, Normal Capillary Refill. Skin: Warm, Dry, Intact. Psy/Mental Status: Alert, Normal Affect, Normal Mood. - Problem List & Annotations. (1) 39 weeks gestation of . SNOMED Code(s): 79410220. Code(s): Z3A.39 - 39 WEEKS GESTATION OF Status: Acute Current Visit: Yes. (2) Encounter for full-term uncomplicated delivery. SNOMED Code(s): 152386370. Code(s): O80 - ENCOUNTER FOR FULL-TERM UNCOMPLICATED DELIVERY Status: Acute Current Visit: Yes. - Problem List Review. Problem List Initiated/Reviewed/Updated: No. - My Orders. Last 24 Hours: My Active Orders. 03/28/20 Breakfast. Regular Diet [DIET]. 03/28/20 07:46. Activity as Tolerated [RC] PFP. Communication Order [RC] ASDIRECTED. Notify Provider [RC] PFP. Notify Provider [RC] PRN. Vital Signs [RC] PER UNIT ROUTINE. Nalbuphine [Nubain] 10 mg IVPUSH Q2H PRN. Ondansetron [Zofran] 4 mg IVPUSH Q4H PRN. Sodium Chloride 0.9% [Saline Flush] 10 ml FLUSH ASDIRECTED PRN. Electronic Heart Tones Ext w TOCO [WOMSER] Routine. Electronic Heart Tones Internal [WOMSER] Per Unit Routine. Peripheral IV Insertion Adult [OM.PC] Routine. Resuscitation Status Routine. 03/28/20 07:47. Patient Status [ADT] Routine. Peripheral IV Care [RC] . DIRECTED. 03/28/20 07:53. Pump Management, Intrathecal [RC] ASDIRECTED. 03/28/20 08:00. Lactated Ringers [Ringers, Lactated] 1,000 ml IV ASDIRECTED. Oxytocin/Lactated Ringers [Pitocin in LR 10 Units/1,000 ML] 10 unit in 1,000 ml IV .CONTINUOUS. Oxytocin/Lactated Ringers [Pitocin in LR 10 Units/1,000 ML] 10 unit in 1,000 ml IV TITRATE. 03/28/20 08:10. BLOOD BANK HOLD SPECIMEN [BBK] Stat. RAPID PLASMA REAGIN,RPR [CHEM] Routine. - Plan. Plan:: Plan delivery Diagnosis: Stroke: No - Discharge Data Discharge Date: 03/29/20 Discharge Disposition: Home, Self-Care 01 Condition: Good - Referral to Home Health Primary Care Physician: Daniel Bliss MD - Discharge Diagnosis/Problem(s) (1) 39 weeks gestation of SNOMED Code(s): 57693883 ICD Code: Z3A.39 - 39 WEEKS GESTATION OF Status: Acute Current Visit: Yes (2) Encounter for full-term uncomplicated delivery SNOMED Code(s): 433481476 ICD Code: O80 - ENCOUNTER FOR FULL-TERM UNCOMPLICATED DELIVERY Status: Acute Current Visit: Yes (3) Nuchal cord without compression, delivered, current hospitalization SNOMED Code(s): 03167306, 321102769 ICD Code: O69.81X0 - LABOR AND DEL COMP BY CORD AROUND NECK, W/O COMPRSN, UNSP Status: Acute Current Visit: Yes - Patient Summary/Data Complications: None Consults: None Hospital Course: Uneventful - Patient Instructions Diet: Usual Diet as Tolerated Driving: Do Not Drive (48 hours) Showering/Bathing: May Shower Notify Provider of: Fever, Increased Pain, Swelling and Redness, Drainage, Nausea and/or Vomiting - Discharge Plan *PRESCRIPTION DRUG MONITORING PROGRAM REVIEWED*: Not Applicable *COPY OF PRESCRIPTION DRUG MONITORING REPORT IN PATIENT MARY ANNE: Not Applicable Home Medications: Home Meds Vits #93/Iron Fum/FA [ Formula Tablet] 1 tab PO DAILY 03/13/20 [History] Docusate Sodium [Colace] 100 mg PO DAILY 03/28/20 [History] Ferrous Sulfate [Iron] 325 mg PO DAILY 03/28/20 [History] Acetaminophen [Tylenol] 650 mg PO Q6H PRN tablet 03/29/20 [Rx] Ibuprofen [Motrin] 600 mg PO Q6H PRN tablet 03/29/20 [Rx] witch Anyi [Tucks] 1 pad TOP ASDIRECTED PRN pad 03/29/20 [Rx] Referrals: Daniel Bliss MD [Primary Care Provider] - (Patient to call today and make appointment to see me on 04/10/2020) - Discharge Summary/Plan Comment DC Time >30 min.: No - Patient Data Vitals - Most Recent: Last Vital Signs Temp 98.2 F 03/29/20 08:11 Pulse 68 03/29/20 08:11 Resp 14 03/29/20 08:11 BP 123/86 03/29/20 08:11 Pulse Ox 98 03/29/20 08:11 Weight - Most Recent: 172 lb I&O - Last 24 hours: Intake & Output 03/28/20 03/29/20 03/29/20 22:59 06:59 14:59 Intake Total 3500 Output Total 400 Balance 3100 Lab Results - Last 24 hrs: Laboratory Results - last 24 hr 03/28/20 03/28/20 03/29/20 Range/Units 08:10 10:00 05:48 WBC 9.15 (3.98-10.04) K/mm3 RBC 3.56 L (3.98-5.22) M/mm3 Hgb 9.7 L (11.2-15.7) gm/dl Hct 31.3 L (34.1-44.9) % MCV 87.9 (79.4-94.8) fl MCH 27.2 (25.6-32.2) pg MCHC 31.0 L (32.2-35.5) g/dl RDW Std Deviation 51.1 H (36.4-46.3) fL Plt Count 179 L (182-369) K/mm3 MPV 11.1 (9.4-12.3) fl Neut % (Auto) 67.3 (34.0-71.1) % Lymph % (Auto) 23.1 (19.3-51.7) % Dawson % (Auto) 8.4 (4.7-12.5) % Eos % (Auto) 0.8 (0.7-5.8) Baso % (Auto) 0.2 (0.1-1.2) % Neut # (Auto) 6.16 H (1.56-6.13) K/mm3 Lymph # (Auto) 2.11 (1.18-3.74) K/mm3 Dawson # (Auto) 0.77 H (0.24-0.36) K/mm3 Eos # (Auto) 0.07 (0.04-0.36) K/mm3 Baso # (Auto) 0.02 (0.01-0.08) K/mm3 RPR Non-reactive (NONREACTIVE) SARS-CoV-2 RNA (RT-PCR) Negative (NEGATIVE) Med Orders - Current: Current Medications Acetaminophen (Tylenol) 650 mg PO Q4H PRN PRN Reason: mild pain or fever Last Admin: 03/29/20 06:08 Dose: 650 mg Documented by: Benzocaine/Menthol (Derm[employer] Pain [facility]) 0 gm TOP ASDIRECTED PRN PRN Reason: Pain Last Admin: 03/28/20 19:45 Dose: 1 can Documented by: Docusate Sodium (Colace) 100 mg PO BID PRN PRN Reason: Constipation Ibuprofen (Motrin) 600 mg PO Q4H PRN PRN Reason: Mild pain or fever Last Admin: 03/29/20 03:23 Dose: 600 mg Documented by: Frankie Hooks (Torsten) 1 pad TOP ASDIRECTED PRN PRN Reason: Perineal Comfort Measure Last Admin: 03/28/20 19:45 Dose: 1 tub Documented by: Discontinued Medications Diphenhydramine HCl (Benadryl) 25 mg IVPUSH Q6H PRN PRN Reason: pruritis Ephedrine Sulfate (Ephedrine Sulfate) 5 mg IVPUSH ASDIRECTED PRN PRN Reason: Hypotension Fentanyl (Sublimaze) 100 mcg EPIDUR Q3H PRN PRN Reason: Pain Last Admin: 03/28/20 13:46 Dose: 100 mcg Documented by: Fentanyl/Bupivacaine HCl (Fentanyl/Bupivacaine/Ns 2 Mcg-0.125% 100 Ml) 100 ml EPIDUR ASDIRECTED PRN PRN Reason: Pain Last Admin: 03/28/20 13:46 Dose: 100 ml Documented by: Oxytocin/Lactated Ringer's (Pitocin In Lr 10 Units/1,000 Ml) 10 unit in 1,000 mls @ 12 mls/hr IV TITRATE CHRISTIE; Protocol Last Titration: 03/28/20 14:32 Dose: 12 munits/min, 72 mls/hr Documented by: Oxytocin/Lactated Ringer's (Pitocin In Lr 10 Units/1,000 Ml) 10 unit in 1,000 mls @ 100 mls/hr IV .CONTINUOUS CHRISTIE Lactated Ringer's (Ringers, Lactated) 1,000 mls @ 100 mls/hr IV ASDIRECTED CHRISTIE Last Admin: 03/28/20 14:29 Dose: 100 mls/hr Documented by: Lidocaine/Epinephrine (Xylocaine-Mpf 1.5% W/Epinephrine 1:200,000) 5 ml .ROUTE .STK-MED ONE Stop: 03/28/20 00:01 Nalbuphine HCl (Nubain) 10 mg IVPUSH Q2H PRN PRN Reason: Pain Ondansetron HCl (Zofran) 4 mg IVPUSH Q4H PRN PRN Reason: Nausea/Vomiting Sodium Chloride (Saline Flush) 10 ml FLUSH ASDIRECTED PRN PRN Reason: Keep Vein Open
== END 2020-03-29 18:39 | disposition home or self-care (01) | DRG 560 ==
LOC: JD.OB 06:41 → OBSVTOIN 16:05 → JD.OB 16:05
PROVIDERS: ADMIT Obstetrics & Gynecology; ATTEND Obstetrics & Gynecology
PROC: 10E0XZZ Delivery of Products of Conception, External Approach (ICD-10-PCS; principal; 2020-03-28)
PROC: 10907ZC Drainage of Amniotic Fluid, Therapeutic from Products of Conception, Via Natural or Artificial Opening (ICD-10-PCS; 2020-03-28)
PROC: 3E0P7VZ Introduction of Hormone into Female Reproductive, Via Natural or Artificial Opening (ICD-10-PCS; 2020-03-28)
PROC: 3E0R3BZ Introduction of Anesthetic Agent into Spinal Canal, Percutaneous Approach (ICD-10-PCS; 2020-03-28)
PROC: 00HU33Z Insertion of Infusion Device into Spinal Canal, Percutaneous Approach (ICD-10-PCS; 2020-03-28)
DX: O69.81X0 Labor and delivery complicated by cord around neck, without compression, not applicable or unspecified (principal); Z3A.39 39 weeks gestation of pregnancy; Z37.0 Single live birth; Z87.891 Personal history of nicotine dependence; Z91.040 Latex allergy status; Z11.59 Encounter for screening for other viral diseases
CPT/HCPCS: 36415; 51702; 59025; 59409; 85025; 86592; A9270-GY; J2590; J3010; J7120; U0002

== ENCOUNTER 2022-03-07 23:59 | Inpatient (IN) | payer BC ==
[2022-03-08] MEDS ORDERED: Bupivacaine 0.25% 10 ML SDV ONE
[2022-03-08] MEDS ORDERED: Nalbuphine HCl 10 MG/ 1ML Amp IVPUSH PRN (03:23)
[2022-03-08] MEDS ORDERED: Sodium Chloride 0.9% 10 ML Syringe FLUSH PRN (03:23)
[2022-03-08] MEDS ORDERED: Ondansetron 4 MG/2 ML SDV IVPUSH PRN (03:23)
[2022-03-08] MEDS ORDERED: Lidocaine 1% 50 ML MDV INJECT ONE (03:23)
[2022-03-08] MEDS ORDERED: Oxytocin/Lactated Ringers 10 UNIT/1,000 ML BAG IV SCH ×2 (03:30→19:30)
[2022-03-08] MEDS ORDERED: Sodium Chloride 0.9% 10 ML Syringe FLUSH SCH (09:00)
[2022-03-08] MEDS: Lactated Ringers 1,000 ML IV SCH ×2 (14:06→17:07)
[2022-03-08] MEDS ORDERED: ePHEDrine 50 MG/ML SDV IVPUSH PRN (14:31)
[2022-03-08] MEDS ORDERED: fentaNYL 100 MCG/2 ML SDV EPIDUR PRN (14:31)
[2022-03-08] MEDS ORDERED: Bupivacaine/fentaNYL/NS 100 ML Bag EPIDUR PRN (14:31)
[2022-03-08] MEDS ORDERED: diphenhydrAMINE 50 MG/ML SDV IVPUSH PRN (14:31)
[2022-03-08] MEDS ORDERED: Witch Hazel Medicated Pads 40/Jar TOP PRN (20:42)
[2022-03-08] MEDS ORDERED: Docusate Sodium 100 MG Cap PO PRN (20:42)
[2022-03-08] MEDS ORDERED: Acetaminophen 325 MG Tab PO PRN (20:42)
[2022-03-08] MEDS ORDERED: Benzocaine/Menthol 20%-0.5% Spray 78 GM Cannister TOP PRN (20:42)
[2022-03-09] MEDS: Ibuprofen 600 MG Tab PO PRN ×3 (02:45→17:50)
[2022-03-09] MEDS ORDERED: Measles, Mumps & Rubella Vaccine 0.5 ML SDV SUBCUT ONE (18:28)
== END 2022-03-09 20:38 | disposition home or self-care (01) | DRG 560 ==
LOC: JD.OB 23:59 → JD.OBCHECK 23:59 → JD.OB 03-08 03:23 → JD.OBCHECK 03-08 03:28 → OBSVTOIN 03-08 20:14 → JD.OB 03-09 17:38
PROVIDERS: ADMIT Obstetrics & Gynecology; ATTEND Obstetrics & Gynecology
PROC: 10E0XZZ Delivery of Products of Conception, External Approach (ICD-10-PCS; principal; 2022-03-08)
PROC: 10907ZC Drainage of Amniotic Fluid, Therapeutic from Products of Conception, Via Natural or Artificial Opening (ICD-10-PCS; 2022-03-08)
PROC: 3E0R3BZ Introduction of Anesthetic Agent into Spinal Canal, Percutaneous Approach (ICD-10-PCS; 2022-03-08)
PROC: 00HU33Z Insertion of Infusion Device into Spinal Canal, Percutaneous Approach (ICD-10-PCS; 2022-03-08)
PROC: 3E0234Z Introduction of Serum, Toxoid and Vaccine into Muscle, Percutaneous Approach (ICD-10-PCS; 2022-03-09)
DX: O80 Encounter for full-term uncomplicated delivery (principal); Z37.0 Single live birth; Z3A.39 39 weeks gestation of pregnancy; Z23 Encounter for immunization
CPT/HCPCS: 36415; 51701; 59025; 59409; 85027; 86592; 90471; 90707; A9270-GY; J2590; J3010; J3490; J7120

== ENCOUNTER 2022-09-14 18:50 | Emergency (ER) | payer SELFPAY ==
[2022-09-14] MEDS ORDERED: Alum Hydrox/Mag Hydrox/Simeth 30 ML, Lidocaine 2% 15 ML PO STA ×2 (19:01)
== END 2022-09-14 19:35 | disposition home or self-care (01) ==
LOC: JD.ED 18:50
DX: R10.13 Epigastric pain (principal); R10.11 Right upper quadrant pain; E66.9 Obesity, unspecified; Z68.32 Body mass index [BMI] 32.0-32.9, adult; Z91.040 Latex allergy status; O99.891 Other specified diseases and conditions complicating pregnancy
CPT/HCPCS: 99283

== ENCOUNTER 2024-01-09 06:55 | Inpatient (IN) | payer BC ==
[2024-01-09] MEDS ORDERED: Nalbuphine HCl 10 MG/ 1ML Amp IVPUSH PRN (07:14)
[2024-01-09] MEDS ORDERED: Lidocaine 1% 50 ML MDV INJECT PRN (07:14)
[2024-01-09 07:31] LABS: BASOPHILS PERCENT AUTO 0.4 % (0.0-1.0); EOSINOPHILS ABSOLUTE AUTO 0.1 K/mm3 (0.0-0.4); EOSINOPHILS PERCENT AUTO 0.7 % (0.0-6.0); HEMATOCRIT 35.7 % (37.0-47.0); HEMOGLOBIN 11.7 gm/dl (12.0-16.0); IMMATURE GRAN ABSOLUTE AUTO 0.03 K/mm3 (0.00-0.05); IMMATURE GRAN PERCENT AUTO 0.4 % (0.0-0.4); LYMPHOCYTES ABSOLUTE AUTO 1.6 K/mm3 (1.0-4.8); LYMPHOCYTES PERCENT AUTO 21.4 % (24.0-44.0); MEAN CORPUSCULAR HEMOGLOBIN 29.3 pg (28.0-32.0); MEAN CORPUSCULAR HGB CONC 32.8 g/dl (32.0-36.0); MEAN CORPUSCULAR VOLUME 89.3 fl (83.0-99.0); MEAN PLATELET VOLUME 10.1 fl (9.4-12.3); MONOCYTES ABSOLUTE AUTO 0.5 K/mm3 (0.0-0.8); MONOCYTES PERCENT AUTO 6.8 % (0.0-8.0); NEUTROPHILS ABSOLUTE AUTO 5.1 K/mm3 (1.8-7.7); NEUTROPHILS PERCENT AUTO 70.3 % (41.0-71.0); PLATELET COUNT,PLT 209 K/mm3 (150-400)
[2024-01-09] MEDS: Lactated Ringers 1,000 ML IV SCH (08:00)
[2024-01-09] MEDS ORDERED: Nalbuphine 10 MG/ML Syringe IVPUSH PRN (08:06)
[2024-01-09] MEDS: Oxytocin/Lactated Ringers 30 UNIT/500 ML BAG IV SCH (08:10)
[2024-01-09] MEDS ORDERED: Sodium Chloride 0.9% 10 ML Syringe FLUSH SCH (09:00)
[2024-01-09] MEDS ORDERED: diphenhydrAMINE 50 MG/ML SDV IVPUSH PRN (14:19)
[2024-01-09] MEDS ORDERED: ePHEDrine 50 MG/ML SDV IVPUSH PRN (14:19)
[2024-01-09] MEDS: fentaNYL 100 MCG/2 ML SDV EPIDUR PRN (14:26)
[2024-01-09] MEDS: Bupivacaine/fentaNYL/NS 100 ML Bag EPIDUR PRN (14:27)
[2024-01-09] MEDS ORDERED: Sodium Bicarbonate 8.4% 50 MEQ/50 ML SDV ONE (18:00)
[2024-01-09] MEDS ORDERED: Bupivacaine 0.25% 10 ML SDV ONE (18:00)
[2024-01-09] MEDS ORDERED: Benzocaine/Menthol 20%-0.5% Spray 78 GM Cannister TOP PRN (18:36)
[2024-01-09] MEDS ORDERED: Witch Hazel Medicated Pads 40/Jar TOP PRN (18:36)
[2024-01-09] MEDS ORDERED: Acetaminophen 325 MG Tab PO PRN (20:00)
[2024-01-09] MEDS: Ibuprofen 600 MG Tab PO PRN (20:15)
== END 2024-01-10 18:36 | disposition home or self-care (01) | DRG 560 ==
LOC: JD.OB 06:55 → OBSVTOIN 17:55
PROVIDERS: ADMIT Obstetrics & Gynecology; ATTEND Obstetrics & Gynecology
PROC: 10E0XZZ Delivery of Products of Conception, External Approach (ICD-10-PCS; principal; 2024-01-09)
PROC: 10907ZC Drainage of Amniotic Fluid, Therapeutic from Products of Conception, Via Natural or Artificial Opening (ICD-10-PCS; 2024-01-09)
PROC: 3E033VJ Introduction of Other Hormone into Peripheral Vein, Percutaneous Approach (ICD-10-PCS; 2024-01-09)
DX: O99.214 Obesity complicating childbirth (principal); Z91.040 Latex allergy status; Z91.041 Radiographic dye allergy status; Z90.49 Acquired absence of other specified parts of digestive tract; Z37.0 Single live birth; Z3A.39 39 weeks gestation of pregnancy
CPT/HCPCS: 36415; 51701; 59025; 59409; 85025; 86592; A9270-GY; J3010; J3490; J7120; J7999

== ENCOUNTER 2024-01-13 20:58 | Emergency (ER) | payer BC ==
[2024-01-13 21:29] LABS: APPEARANCE,URINE CLEAR (Clear); BILIRUBIN,URINE NEGATIVE (Negative); COLOR,URINE YELLOW (Yellow); GLUCOSE,URINE NEGATIVE (Negative); KETONES,URINE NEGATIVE (Negative); LEUKOCYTE ESTERASE,URINE 2+ (Negative); NITRITE,URINE NEGATIVE (Negative); OCCULT BLOOD,URINE 2+ (Negative); PH,URINE 7.5 (5.0-8.0); PROTEIN,URINE NEGATIVE (Negative); UROBILINOGEN,URINE 0.2 (0.2-1.0)
[2024-01-13 21:31] LABS: BASOPHILS PERCENT AUTO 0.1 % (0.0-1.0); EOSINOPHILS ABSOLUTE AUTO 0.1 K/mm3 (0.0-0.4); EOSINOPHILS PERCENT AUTO 1.3 % (0.0-6.0); HEMATOCRIT 33.2 % (37.0-47.0); IMMATURE GRAN ABSOLUTE AUTO 0.03 K/mm3 (0.00-0.05); IMMATURE GRAN PERCENT AUTO 0.4 % (0.0-0.4); LYMPHOCYTES ABSOLUTE AUTO 1.4 K/mm3 (1.0-4.8); LYMPHOCYTES PERCENT AUTO 18.7 % (24.0-44.0); MEAN CORPUSCULAR HEMOGLOBIN 29.3 pg (28.0-32.0); MEAN CORPUSCULAR HGB CONC 33.1 g/dl (32.0-36.0); MEAN CORPUSCULAR VOLUME 88.5 fl (83.0-99.0); MEAN PLATELET VOLUME 10.2 fl (9.4-12.3); MONOCYTES ABSOLUTE AUTO 0.6 K/mm3 (0.0-0.8); MONOCYTES PERCENT AUTO 7.3 % (0.0-8.0); NEUTROPHILS ABSOLUTE AUTO 5.5 K/mm3 (1.8-7.7); NEUTROPHILS PERCENT AUTO 72.2 % (41.0-71.0); PLATELET COUNT,PLT 198 K/mm3 (150-400); RED BLOOD CELL COUNT 3.75 M/mm3 (4.10-5.30); WHITE BLOOD CELL COUNT,WBC 7.63 K/mm3 (3.9-11.3)
[2024-01-13 21:38] LABS: BACTERIA,URINE FEW /hpf (FEW); MUCUS,URINE FEW /hpf (FEW); SQUAMOUS EPITHELIAL CELLS,UR 0-5 /hpf (0-5)
[2024-01-13 21:59] LABS: A/G RATIO 0.7 (1-2); ALBUMIN 2.5 g/dl (3.4-5.0); ANION GAP 14.6 (5-15); BILIRUBIN TOTAL 0.2 mg/dL (0.2-1.0); BUN/CREATININE RATIO 12.2 (14-18); C-REACTIVE PROTEIN 2.42 mg/dL (<0.30); CALCIUM 8.6 mg/dL (8.5-10.1); CREATININE 0.9 mg/dL (0.55-1.02); EST CRCL DRUG DOSING (CG) 71.48 mL/min; POTASSIUM,K 3.6 mEq/L (3.5-5.1); PROTEIN TOTAL,TP 6.2 g/dl (6.4-8.2)
[2024-01-13 22:04] LABS: CORONAVIRUS COVID-19 NAA NEGATIVE (NEGATIVE); INFLUENZA A NAA NEGATIVE (NEGATIVE); RESPIRATORY SYNCYTIAL VIR NAA NEGATIVE (NEGATIVE)
== END 2024-01-13 22:30 | disposition home or self-care (01) ==
LOC: JD.ED 20:58
DX: O86.4 Pyrexia of unknown origin following delivery (principal); Z91.041 Radiographic dye allergy status; Z88.8 Allergy status to other drugs, medicaments and biological substances; Z91.040 Latex allergy status
CPT/HCPCS: 0241U; 36415; 80053; 81001; 81003; 85025; 86140; 87086; 99284